=== PATIENT | female | born 1965 | race Caucasian/White ===

== ENCOUNTER 2019-12-22 12:44 | Emergency (ER) | payer OTHER ==
[2019-12-22 12:52] VITALS: TEMP 98
[2019-12-22] MEDS ORDERED: LIDOCAINE 1% INJ 10MG/ML (20 ML MDV) SQ ONE (13:02)
[2019-12-22] MEDS ORDERED: IBUPROFEN 600 MG TAB PO STA (13:02)
[2019-12-22] MEDS ORDERED: CEPHALEXIN 500MG STARTER PACK 4 CAP BTL PO STA (13:11)
--- NOTE | 2019-12-22 13:13 | ED ---
Upper Extremity HPI - General Chief Complaint: Extremity Injury, Upper Stated Complaint: Hand Lac Time Seen by Provider: 12/22/19 12:56 Source: patient Mode of arrival: wheelchair Limitations: physical limitation - History of Present Illness Initial Comments: 54-year-old female patient presents to the emergency department today for evaluation of laceration injury to the left hand. Patient states that she was in her back yard pulling weeds and debris when she cut her hand on a wire fence. Patient believes that a piece of the fence punctured her hand as well. States that she is having difficulty with movement due to pain. Denies any numbness or tingling to the hand. She was having some bleeding but denies take any blood thinning medications. States that she did rinse with water but did not do any other cleaning. States her last tetanus vaccine was one year ago. She did not take anything for pain. Denies any other injuries. Patient denies any headache, neck pain, back pain, chest pain, shortness of breath, dizziness, weakness, abdominal pain, nausea, vomiting, or difficulties with bowel movements or urination. - Related Data Previous Rx's Medication Instructions Recorded Cephalexin [Keflex] 500 mg PO Q6H #28 cap 12/22/19 Allergies Allergy/AdvReac Type Severity Reaction Status Date / Time Penicillins Allergy Rash/Hives Verified 12/22/19 12:52 Review of Systems ROS Statement: Those systems with pertinent positive or pertinent negative responses have been documented in the HPI. ROS Other: All systems not noted in ROS Statement are negative. Past Medical History Past Medical History: Fibromyalgia, Rheumatoid Arthritis (RA) Additional Past Medical History / Comment(s): lupus, restless legs History of Any Multi-Drug Resistant Organisms: None Reported Additional Past Surgical History / Comment(s): achilles tendon, lt knee Past Psychological History: No Psychological Hx Reported Smoking Status: Never smoker Past Alcohol Use History: Occasional Past Drug Use History: None Reported General Exam Limitations: physical limitation General appearance: alert, in no apparent distress, other (This is a well- developed, well-nourished adult female patient in no acute distress. Vital signs upon presentation are temperature 98.0F, pulse 83, respirations 18, blood pressure 156/81, pulse ox 98% on room air.) Respiratory exam: Present: normal lung sounds bilaterally. Absent: respiratory distress, wheezes, rales, rhonchi, stridor Cardiovascular Exam: Present: regular rate, normal rhythm, normal heart sounds. Absent: systolic murmur, diastolic murmur, rubs, gallop, clicks Extremities exam: Present: full ROM, normal capillary refill, other (There is puncture and laceration noted to the dorsal aspect of the hand near the left MCP joint of the ring finger, there is soft tissue swelling and ecchymosis. Skin is otherwise pink, warm, and dry. Cap refill less than 3 seconds. radial pulses 2+ and equal bilaterally. ). Absent: normal inspection, tenderness, pedal edema, joint swelling, calf tenderness Neurological exam: Present: alert, oriented X3, CN II-XII intact Psychiatric exam: Present: normal affect, normal mood Skin exam: Present: warm, dry, intact, normal color. Absent: rash Course Vital Signs 12/22/19 12/22/19 12:48 14:53 Temperature 98.0 F 98.0 F Pulse Rate 83 81 Respiratory 18 16 Rate Blood Pressure 156/81 148/87 O2 Sat by Pulse 98 98 Oximetry Procedures - Laceration Laceration #1 Consent Obtained: verbal consent Indication: laceration Site: upper extremity (Hand) Size (cm): 3 Description: linear Depth: simple, single layer Anesthetic Used: lidocaine 1% Anesthesia Technique: local infiltration Amount (mls): 5 Pre-repair: irrigated extensively Type of Sutures: nylon Size of Sutures: 5-0 Number of Sutures: 4 Technique: simple, interrupted Patient Tolerated Procedure: well, no complications Medical Decision Making - Medical Decision Making 54-year-old female patient presents to the emergency department today for evaluation of laceration puncture wound to the left dorsal hand. Physical examination revealed a 3 cm laceration adjacent to the fourth MCP joint. There is a puncture wound noted to the dorsal aspect of the hand. X-ray was obtained and showed no evidence for foreign body. Wound was irrigated using sterile water. Sutures were applied to the laceration puncture was left open. Patient was started on Keflex. She'll be discharged with prescription for antibiotics and wound care. She is instructed to follow-up with her primary care physician for recheck in 1-2 days. She is instructed to return in 7 days to have the stitches removed. Return parameters were discussed in detail. She verbalizes understanding and agrees with this plan. - Radiology Data Radiology results: report reviewed, image reviewed 3 views of the left hand are obtained. Report was reviewed in its entirety. Impression by Dr. Miller shows no acute osseous lesion radiopaque foreign body. Disposition Clinical Impression: Hand laceration, Puncture wound of left hand Disposition: HOME SELF-CARE Condition: Good Instructions (If sedation given, give patient instructions): Care For Your Stitches (ED), Laceration (ED), Puncture Wound (ED) Additional Instructions: Keep wound clean and dry. Cleanse twice daily with warm water and antibacterial soap. Follow-up with your primary care physician or hand specialist as needed. Return to the emergency department in 7 days to have your stitches removed. Return for any other new, worsening, or concerning symptoms. Prescriptions: Cephalexin [Keflex] 500 mg PO Q6H #28 cap Is patient prescribed a controlled substance at d/c from ED?: No Referrals: Dilip Allen MD [Primary Care Provider] - 1-2 days Yevgeniy Kendrick DO [Medical Doctor] - 1-2 days Time of Disposition: 14:18
--- NOTE | 2019-12-22 13:27 | XR ---
EXAMINATION TYPE: XR hand complete LT , 3 VIEWS DATE OF EXAM ORDERED: 12/22/2019 HISTORY: Laceration/puncture. COMPARISON: None. FINDINGS: No fracture, dislocation or radiopaque foreign body is seen. IMPRESSION: NO ACUTE OSSEOUS LESION OR RADIOPAQUE FOREIGN BODY.
[2019-12-22 14:54] VITALS: BP 148/87; PULSE 81; RESP 16
== END 2019-12-22 14:53 | disposition home or self-care (01) ==
LOC: EC 12:44
DX: S61.412A Laceration without foreign body of left hand, initial encounter (principal); S61.432A Puncture wound without foreign body of left hand, initial encounter; Z88.0 Allergy status to penicillin; W26.8XXA Contact with other sharp object(s), not elsewhere classified, initial encounter; Y92.096 Garden or yard of other non-institutional residence as the place of occurrence of the external cause
CPT/HCPCS: 73130; 99283; 12002; J2001

== ENCOUNTER 2020-11-09 16:34 | Emergency (ER) | payer BC, OTHER ==
--- NOTE | 2020-11-09 19:00 | ED ---
Neuro HPI - General Chief Complaint: Neuro Symptoms/Deficit Stated Complaint: SOB, DIZZY, NUMB Time Seen by Provider: 11/09/20 18:05 Source: patient Mode of arrival: wheelchair Limitations: no limitations - History of Present Illness Is the patient presenting with stroke symptoms?: Yes Initial Comments: 55-year-old female past medical history of fibromyalgia, rheumatoid arthritis, lupus who presents to the emergency department with numbness and weakness in her right hand. Patient states that she had a headache which developed this morning which was graded it as an 8/10 located in the frontal region. Shortly after breakfast she noted that she had some weakness in her right hand and numbness to her fingertips. Olar as if the whole right side of her body was heavy. Olar as if she couldn't make a fist or clinical trial specialist anything. Denies previous history of stroke. She did take an aspirin today. Denies any visual changes. No neck pain or stiffness. No weakness in her right lower extremity. No other alleviating, precipitating or modifying factors - Related Data Home Medications: Previous Rx's Medication Instructions Recorded Cephalexin [Keflex] 500 mg PO Q6H #28 cap 12/22/19 Atorvastatin [Lipitor] 20 mg PO DAILY #30 tablet 11/09/20 Allergies/Adverse Reactions: Allergies Allergy/AdvReac Type Severity Reaction Status Date / Time Penicillins Allergy Rash/Hives Verified 12/22/19 12:52 Review of Systems ROS Statement: Those systems with pertinent positive or pertinent negative responses have been documented in the HPI. ROS Other: All systems not noted in ROS Statement are negative. General Exam Limitations: no limitations General appearance: alert, in no apparent distress Head exam: Present: atraumatic, normocephalic, normal inspection Eye exam: Present: normal appearance, PERRL, EOMI. Absent: scleral icterus, conjunctival injection, periorbital swelling ENT exam: Present: normal exam, mucous membranes moist Neck exam: Present: normal inspection. Absent: tenderness, meningismus, lymp hadenopathy Respiratory exam: Present: normal lung sounds bilaterally. Absent: respiratory distress, wheezes, rales, rhonchi, stridor Cardiovascular Exam: Present: regular rate, normal rhythm, normal heart sounds. Absent: systolic murmur, diastolic murmur, rubs, gallop, clicks GI/Abdominal exam: Present: soft, normal bowel sounds. Absent: distended, tenderness, guarding, rebound, rigid Extremities exam: Present: normal inspection, full ROM, normal capillary refill, other (equal clinical trial specialist strength. Sensation intact in median, radial and ulnar nerve distribution). Absent: tenderness, pedal edema, joint swelling, calf tenderness Back exam: Present: normal inspection Neurological exam: Present: alert, oriented X3, CN II-XII intact Psychiatric exam: Present: normal affect, normal mood Skin exam: Present: warm, dry, intact, normal color. Absent: rash Stroke MDM - Lab Data Result diagrams: 11/09/20 18:54 11/09/20 18:54 Lab Results 11/09/20 11/09/20 11/09/20 Range/Units 18:54 18:54 18:54 WBC 6.2 (3.8-10.6) k/uL RBC 4.71 (3.80-5.40) m/uL Hgb 15.2 (11.4-16.0) gm/dL Hct 44.3 (34.0-46.0) % MCV 93.9 (80.0-100.0) fL MCH 32.2 (25.0-35.0) pg MCHC 34.3 (31.0-37.0) g/dL RDW 12.1 (11.5-15.5) % Plt Count 154 (150-450) k/uL MPV 7.7 Neutrophils % 55 % Lymphocytes % 30 % Monocytes % 5 % Eosinophils % 7 % Basophils % 1 % Neutrophils # 3.4 (1.3-7.7) k/uL Lymphocytes # 1.9 (1.0-4.8) k/uL Monocytes # 0.3 (0-1.0) k/uL Eosinophils # 0.4 (0-0.7) k/uL Basophils # 0.1 (0-0.2) k/uL PT 9.7 (9.0-12.0) sec INR 0.9 (<1.2) APTT 22.0 (22.0-30.0) sec Sodium 140 (137-145) mmol/L Potassium 3.9 (3.5-5.1) mmol/L Chloride 106 (98-107) mmol/L Carbon Dioxide 27 (22-30) mmol/L Anion Gap 7 mmol/L BUN 19 H (7-17) mg/dL Creatinine 0.92 (0.52-1.04) mg/dL Est GFR (CKD-EPI)AfAm 82 (>60 ml/min/1.73 sqM) Est GFR (CKD-EPI)NonAf 71 (>60 ml/min/1.73 sqM) Glucose 91 (74-99) mg/dL Plasma Lactic Acid Júnior (0.7-2.0) mmol/L Calcium 9.4 (8.4-10.2) mg/dL Total Bilirubin 0.4 (0.2-1.3) mg/dL AST 30 (14-36) U/L ALT 21 (4-34) U/L Alkaline Phosphatase 119 (38-126) U/L Troponin I (0.000-0.034) ng/mL Total Protein 6.9 (6.3-8.2) g/dL Albumin 3.8 (3.5-5.0) g/dL Urine Color Urine Appearance (Clear) Urine pH (5.0-8.0) Ur Specific [place] (1.001-1.035) Urine Protein (Negative) Urine Glucose (UA) (Negative) Urine Ketones (Negative) Urine Blood (Negative) Urine Nitrite (Negative) Urine Bilirubin (Negative) Urine Urobilinogen (<2.0) mg/dL Ur Leukocyte Esterase (Negative) Urine RBC (0-5) /hpf Urine WBC (0-5) /hpf Ur Squamous Epith Cells (0-4) /hpf Hyaline Casts (0-2) /lpf Urine Mucus (None) /hpf 11/09/20 11/09/20 11/09/20 Range/Units 18:54 18:54 20:07 WBC (3.8-10.6) k/uL RBC (3.80-5.40) m/uL Hgb (11.4-16.0) gm/dL Hct (34.0-46.0) % MCV (80.0-100.0) fL MCH (25.0-35.0) pg MCHC (31.0-37.0) g/dL RDW (11.5-15.5) % Plt Count (150-450) k/uL MPV Neutrophils % % Lymphocytes % % Monocytes % % Eosinophils % % Basophils % % Neutrophils # (1.3-7.7) k/uL Lymphocytes # (1.0-4.8) k/uL Monocytes # (0-1.0) k/uL Eosinophils # (0-0.7) k/uL Basophils # (0-0.2) k/uL PT (9.0-12.0) sec INR (<1.2) APTT (22.0-30.0) sec Sodium (137-145) mmol/L Potassium (3.5-5.1) mmol/L Chloride (98-107) mmol/L Carbon Dioxide (22-30) mmol/L Anion Gap mmol/L BUN (7-17) mg/dL Creatinine (0.52-1.04) mg/dL Est GFR (CKD-EPI)AfAm (>60 ml/min/1.73 sqM) Est GFR (CKD-EPI)NonAf (>60 ml/min/1.73 sqM) Glucose (74-99) mg/dL Plasma Lactic Acid Júnior 0.9 (0.7-2.0) mmol/L Calcium (8.4-10.2) mg/dL Total Bilirubin (0.2-1.3) mg/dL AST (14-36) U/L ALT (4-34) U/L Alkaline Phosphatase (38-126) U/L Troponin I <0.012 (0.000-0.034) ng/mL Total Protein (6.3-8.2) g/dL Albumin (3.5-5.0) g/dL Urine Color Yellow Urine Appearance Clear (Clear) Urine pH 5.5 (5.0-8.0) Ur Specific [place]well 1.040 H (1.001-1.035) Urine Protein Negative (Negative) Urine Glucose (UA) Negative (Negative) Urine Ketones Negative (Negative) Urine Blood Negative (Negative) Urine Nitrite Negative (Negative) Urine Bilirubin Negative (Negative) Urine Urobilinogen <2.0 (<2.0) mg/dL Ur Leukocyte Esterase Small H (Negative) Urine RBC 2 (0-5) /hpf Urine WBC 2 (0-5) /hpf Ur Squamous Epith Cells 3 (0-4) /hpf Hyaline Casts 1 (0-2) /lpf Urine Mucus Rare H (None) /hpf - Medical Decision Making Upon arrival patient was placed into room 19. Thorough history and physical exam is performed. Patient does have full range of motion except for a weak abduction in the fingers. Sensation is intact. IV is established. Labs were conducted. Patient sent for a CT of her brain as well as CT angiography. Laboratory studies are reviewed and discussed the patient's. CT of the brain and CT angiography are negative. Results are discussed the patient. She has artery taken a full dose aspirin today. I did recommend admission for neurology consultation and echo. Patient reports that she would like to follow up outpatient due to the covid pandemic and the risk of catching covid while hospitalized. I did recommend that the patient take it and aspirin daily. Reports to a previous history of low platelets and therefore I do recommend a baby aspirin. Patient will be also placed on atorvastatin. Recommended that she follow up with her primary care doctor in 2-4 days. I would like her to see a neurologist and have an echo performed. Return to the emergency room for any new or worsening symptoms. Strict return parameters given and the patient understood. Patient was discharged home without any new neurologic findings. 11/09/20 1651 EKG demonstrates sinus rhythm with ventricular rate of 69. ID interval 244. QRS 92. QTC 420. Q wave in lead 3. J-point elevation in aVF. 11/09/20 18:43 EKG demonstrates sinus rhythm with first-degree AV block. Rate of 70. ID interval to 42. QS 92. QTC 414. Q wave in lead 3. Minimal ST elevation in aVF. No reciprocal changes Past Medical History Past Medical History: Fibromyalgia, Rheumatoid Arthritis (RA) Additional Past Medical History / Comment(s): lupus, restless legs History of Any Multi-Drug Resistant Organisms: None Reported Additional Past Surgical History / Comment(s): achilles tendon, lt knee Past Psychological History: No Psychological Hx Reported Past Alcohol Use History: Occasional Past Drug Use History: None Reported Course Vital Signs 11/09/20 11/09/20 11/09/20 16:43 18:58 20:00 Temperature 97.7 F Pulse Rate 58 L 67 75 Respiratory 18 18 20 Rate Blood Pressure 108/77 115/68 121/71 O2 Sat by Pulse 95 100 100 Oximetry 11/09/20 21:12 Temperature 97.6 F Pulse Rate 85 Respiratory 86 H Rate Blood Pressure 126/85 O2 Sat by Pulse 100 Oximetry Disposition Clinical Impression: Numbness of right hand, Cephalgia Disposition: HOME SELF-CARE Condition: Stable Instructions (If sedation given, give patient instructions): Paresthesia (ED) Additional Instructions: Take an 81 mg Aspirin daily. You have been started on a new cholesterol medication. I recommend you see a neurologist and have an Echo performed. Return to the ED for any new or worsening symptoms. Prescriptions: Atorvastatin [Lipitor] 20 mg PO DAILY #30 tablet Is patient prescribed a controlled substance at d/c from ED?: No Referrals: Dilip Allen MD [Primary Care Provider] - 1-2 days Time of Disposition: 20:31
[2020-11-09 19:05] LABS: Basophils # (A) 0.1 k/uL (0-0.2); Basophils % (A) 1 %; Eosinophils # (A) 0.4 k/uL (0-0.7); Eosinophils % (A) 7 %; HCT 44.3 % (34.0-46.0); HGB 15.2 gm/dL (11.4-16.0); Lymphocytes # (A) 1.9 k/uL (1.0-4.8); Lymphocytes % (A) 30 %; MCH 32.2 pg (25.0-35.0); MCHC 34.3 g/dL (31.0-37.0); MCV 93.9 fL (80.0-100.0); Mean Platelet Volume 7.7; Monocytes # (A) 0.3 k/uL (0-1.0); Monocytes % (A) 5 %; Neutrophils # (A) 3.4 k/uL (1.3-7.7); Neutrophils % (A) 55 %; Platelet Count 154 k/uL (150-450); RBC 4.71 m/uL (3.80-5.40); RDW 12.1 % (11.5-15.5); WBC 6.2 k/uL (3.8-10.6)
[2020-11-09 19:15] LABS: Albumin 3.8 g/dL (3.5-5.0); Calcium 9.4 mg/dL (8.4-10.2); Potassium 3.9 mmol/L (3.5-5.1); Total Bilirubin 0.4 mg/dL (0.2-1.3); Total Protein 6.9 g/dL (6.3-8.2)
[2020-11-09 19:19] LABS: INR 0.9 (<1.2); Prothrombin Time 9.7 sec (9.0-12.0)
--- NOTE | 2020-11-09 19:35 | CT ---
EXAM: CT brain wo con CLINICAL HISTORY: Right-sided weakness and dizziness. COMPARISON: None TECHNIQUE: Contiguous axial noncontrast images of the brain were obtained. Coronal and sagittal refor mats were generated and reviewed. Automated dose control was used for this exam. FINDINGS: There is no evidence for intracranial hemorrhage, mass effect or midline shift. The white matter is g rossly preserved. Ventricular size and configuration is within normal limits for degree of parenchymal volume. The paranasal sinuses are clear. The mastoid air cells are clear. No evidence for calvarial fracture. IMPRESSION: No acute intracranial abnormality.
--- NOTE | 2020-11-09 19:45 | CT ---
EXAM: CTA HEAD AND NECK INDICATION: Follow-up stroke with right-sided weakness. COMPARISON: None. TECHNIQUE: CTA of the head and neck were performed with multiplanar and MIP reformats generated and r eviewed. Stenosis evaluation is based on [place] Symptomatic Carotid Endarterectomy Trial (HERMINIO CET). Intravenous contrast was administered. FINDINGS: There is normal three-vessel branching of the aorta. There is no evidence of high-grade stenosis, dis section or aneurysm seen in the bilateral common carotid, cervical internal carotid and vertebral art eries. There is no evidence of high-grade stenosis, dissection or aneurysm in the intracranial internal lal tid arteries, anterior, middle and posterior cerebral arteries as well as in the imaged vertebral and basilar arteries. The communicating arteries are unremarkable. Limited evaluation of the brain parenchyma and osseous structures demonstrate no acute abnormality. IMPRESSION: No significant abnormality of the CTA head/neck.
[2020-11-09 20:17] LABS: Appearance,Urine Clear (Clear); Bilirubin,Urine Negative (Negative); Blood,Urine Negative (Negative); Color,Urine Yellow; Glucose,Urine (UA) Negative (Negative); Hyaline Casts,Urine 1 /lpf (0-2); Ketones,Urine Negative (Negative); Leukocyte Esterase,Urine Small (Negative); Mucus,Urine Rare /hpf; Nitrite,Urine Negative (Negative); PH, Urine 5.5 (5.0-8.0); Protein,Urine Negative (Negative); RBC,Urine 2 /hpf (0-5); Squamous Epithelial Cell,Urine 3 /hpf (0-4); Urobilinogen,Urine <2.0 mg/dL (<2.0); WBC,Urine 2 /hpf (0-5)
[2020-11-09] MEDS ORDERED: diphenhydrAMINE 50 MG/ML 1 ML VIAL IVP STA (20:28)
[2020-11-09] MEDS ORDERED: KETOROLAC 15 MG/ML 1 ML VIAL IVP STA (20:28)
[2020-11-09] MEDS ORDERED: METOCLOPRAMIDE 5 MG/ML 2 ML VIAL IVP STA (20:28)
[2020-11-09 21:13] VITALS: BP 126/85; PULSE 85; RESP 86; TEMP 97.6
== END 2020-11-09 21:17 | disposition home or self-care (01) ==
LOC: EC 16:34
DX: R20.0 Anesthesia of skin (principal); R51.9 Headache, unspecified; M79.7 Fibromyalgia; M06.9 Rheumatoid arthritis, unspecified; Z88.0 Allergy status to penicillin
CPT/HCPCS: 99285; 96374; 96375 ×2; 36415; 93005; 80053; 83605; 84484; 85025; 85610; 85730; 81001; 70496; 70450; 70498; J1200; J2765; J1885; Q9967

== ENCOUNTER 2021-01-09 11:54 | Emergency (ER) | payer BC ==
--- NOTE | 2021-01-09 12:27 | ED ---
General Adult HPI - General Chief complaint: Extremity Injury, Lower Stated complaint: Fall, R Knee Injury Time Seen by Provider: 01/09/21 12:12 Source: patient, RN notes reviewed Mode of arrival: ambulatory Limitations: no limitations - History of Present Illness Initial comments: Patient is a pleasant 55-year-old female presenting to the emergency Department with complaints of right knee discomfort. Patient had a fall down a couple of steps yesterday and twisted her right knee. Patient has discomfort fairly severe with movement. Discomfort mild at rest. No head injury or loss of consciousness. No chest pain or dyspnea. No abdominal or back pain. No history of chronic knee problems. Patient states the injury was a twisting injury rather than a direct trauma. - Related Data Previous Rx's Medication Instructions Recorded Cephalexin [Keflex] 500 mg PO Q6H #28 cap 12/22/19 Atorvastatin [Lipitor] 20 mg PO DAILY #30 tablet 11/09/20 Allergies Allergy/AdvReac Type Severity Reaction Status Date / Time Penicillins Allergy Rash/Hives Verified 01/09/21 12:01 Review of Systems ROS Statement: Those systems with pertinent positive or pertinent negative responses have been documented in the HPI. ROS Other: All systems not noted in ROS Statement are negative. Constitutional: Denies: fever Eyes: Denies: eye pain ENT: Denies: ear pain Respiratory: Denies: cough Cardiovascular: Denies: chest pain Endocrine: Denies: fatigue Gastrointestinal: Denies: abdominal pain Genitourinary: Denies: dysuria Musculoskeletal: Reports: as per HPI. Denies: back pain Skin: Denies: rash Neurological: Denies: headache, weakness Past Medical History Past Medical History: Fibromyalgia, Rheumatoid Arthritis (RA) Additional Past Medical History / Comment(s): lupus, restless legs History of Any Multi-Drug Resistant Organisms: None Reported Additional Past Surgical History / Comment(s): achilles tendon, lt knee Past Psychological History: No Psychological Hx Reported Smoking Status: Never smoker Past Alcohol Use History: Occasional Past Drug Use History: None Reported General Exam Limitations: no limitations General appearance: alert, in no apparent distress Head exam: Present: atraumatic Eye exam: Present: normal appearance Neck exam: Present: normal inspection. Absent: tenderness Respiratory exam: Present: normal lung sounds bilaterally Cardiovascular Exam: Present: regular rate, normal rhythm Expanded Peripheral pulses: 2+: Posterior Tibialis (R), Dorsalis Pedis (R) GI/Abdominal exam: Present: soft. Absent: tenderness Extremities exam: Present: tenderness (Mild tenderness right anterior knee. Moderate tenderness and meniscal region.), other (Distal extremity is neurovascularly intact. Sensation intact. Pulses intact. Good strength of foot and toes.). Absent: full ROM (Right knee exam Limited by pain) Neurological exam: Present: alert. Absent: motor sensory deficit Psychiatric exam: Present: normal affect, normal mood Skin exam: Present: normal color Course Vital Signs 01/09/21 11:58 Temperature 98.1 F Pulse Rate 84 Respiratory 18 Rate Blood Pressure 119/85 O2 Sat by Pulse 97 Oximetry Medical Decision Making - Medical Decision Making Patient reevaluated and updated on results and need for follow-up as well as con cerns for possible meniscal or ligament injury. - Radiology Data Radiology results: image reviewed (Right knee x-ray reveals no acute process) Disposition Clinical Impression: Right knee injury Disposition: HOME SELF-CARE Condition: Stable Instructions (If sedation given, give patient instructions): Knee Pain (ED) Additional Instructions: Please do follow-up with orthopedics in the next few days for recheck. There is concern for possible meniscal or ligamentous injury. Ice to affected area. [id number] Motrin as needed. Return for increased pain, swelling, redness or fever, worsening symptoms or any other concerns. Use crutches, prescribed and provided. Is patient prescribed a controlled substance at d/c from ED?: No Referrals: Dilip Allen MD [Primary Care Provider] - 1-2 days Dileep Valverde MD [STAFF PHYSICIAN] - 1-2 days Time of Disposition: 12:50
--- NOTE | 2021-01-09 12:37 | XR ---
EXAMINATION TYPE: XR knee complete RT DATE OF EXAM: 01/09/2021 CLINICAL HISTORY: pain TECHNIQUE: Three views of the right knee are obtained. COMPARISON: None. FINDINGS: There is no acute fracture/dislocation. The tri-compartment joint spaces appear within no rmal limits. The overlying soft tissue appears unremarkable. IMPRESSION: There is no acute fracture or dislocation.ICD 10 NO FRACTURE, INITIAL EVALUATION
[2021-01-09] MEDS ORDERED: KETOROLAC 15 MG/ML 1 ML VIAL IM STA (12:44)
[2021-01-09] MEDS ORDERED: ACET/COD 300 MG/30 MG STARTER PACK 6 TAB BTL PO STA (12:50)
[2021-01-09 13:13] VITALS: BP 137/75; PULSE 78; RESP 16; TEMP 98
== END 2021-01-09 13:11 | disposition home or self-care (01) ==
LOC: EC 11:54
DX: S89.91XA Unspecified injury of right lower leg, initial encounter (principal); W10.9XXA Fall (on) (from) unspecified stairs and steps, initial encounter; M06.9 Rheumatoid arthritis, unspecified; M79.7 Fibromyalgia
CPT/HCPCS: 73562; 99283; 96372; L1830; J1885

== ENCOUNTER 2022-04-26 06:44 | Emergency (ER) | payer BC ==
[2022-04-26 06:48] VITALS: TEMP 98.2
[2022-04-26] MEDS ORDERED: HYDROmorphone 1 MG/ML 1 ML SYRINGE IVP STA (07:10)
[2022-04-26] MEDS ORDERED: ONDANSETRON 4 MG/2 ML VIAL IVP STA (07:10)
--- NOTE | 2022-04-26 07:35 | ED ---
Back Pain HPI - General Chief Complaint: Back Pain/Injury Stated Complaint: Fall, back injury Time Seen by Provider: 04/26/22 06:49 Source: patient, RN notes reviewed Limitations: no limitations - History of Present Illness Initial Comments: This a 56-year-old female presents emergency Department with chief complaint of back pain. Patient states she fell just prior arrival. Patient states she also balance falling backwards onto her low back, buttocks region. Patient states that she has fibromyalgia, lupus and chronic back issues. She denies any prior surgeries. She denies any bowel, bladder incontinence or retention. Patient states the pain is located in her lumbar spine, radiates mild into the left hip, left leg. Denies any paresthesias denies any saddle last seizures. Patient denies any abdominal pain. Patient denies any head injury no loss conscious. - Related Data Previous Rx's Medication Instructions Recorded Cephalexin [Keflex] 500 mg PO Q6H #28 cap 12/22/19 Atorvastatin [Lipitor] 20 mg PO DAILY #30 tablet 11/09/20 Cyclobenzaprine [Flexeril] 10 mg PO TID PRN #15 tab 04/26/22 Ibuprofen [Motrin] 600 mg PO Q8HR PRN #20 tab 04/26/22 Allergies Allergy/AdvReac Type Severity Reaction Status Date / Time Penicillins Allergy Rash/Hives Verified 04/26/22 06:48 Review of Systems ROS Statement: Those systems with pertinent positive or pertinent negative responses have been documented in the HPI. ROS Other: All systems not noted in ROS Statement are negative. Past Medical History Past Medical History: Fibromyalgia, Rheumatoid Arthritis (RA) Additional Past Medical History / Comment(s): lupus, restless legs History of Any Multi-Drug Resistant Organisms: None Reported Additional Past Surgical History / Comment(s): achilles tendon, lt knee Past Psychological History: No Psychological Hx Reported Smoking Status: Never smoker Past Alcohol Use History: Occasional Past Drug Use History: None Reported General Exam Limitations: no limitations General appearance: alert, in no apparent distress Head exam: Present: atraumatic, normocephalic, normal inspection Eye exam: Present: normal appearance, PERRL, EOMI. Absent: scleral icterus, conjunctival injection, periorbital swelling Neck exam: Present: normal inspection, full ROM. Absent: tenderness, meningismus, lymphadenopathy Respiratory exam: Present: normal lung sounds bilaterally. Absent: respiratory distress, wheezes, rales, rhonchi, stridor Cardiovascular Exam: Present: regular rate, normal rhythm, normal heart sounds. Absent: systolic murmur, diastolic murmur, rubs, gallop, clicks GI/Abdominal exam: Present: soft, normal bowel sounds. Absent: distended, tenderness, guarding, rebound, rigid Extremities exam: Present: normal inspection, full ROM, normal capillary refill. Absent: tenderness, pedal edema, joint swelling, calf tenderness Back exam: Present: tenderness, paraspinal tenderness, vertebral tenderness. Absent: full ROM, CVA tenderness (R), CVA tenderness (L), muscle spasm Neurological exam: Present: alert, oriented X3, CN II-XII intact, reflexes normal. Absent: motor sensory deficit Skin exam: Present: warm, dry, intact, normal color. Absent: rash Course Vital Signs 04/26/22 06:45 Temperature 98.2 F Pulse Rate 62 Respiratory 22 Rate Blood Pressure 122/75 O2 Sat by Pulse 96 Oximetry Medical Decision Making - Medical Decision Making 56-year-old presented for back pain for a fall x-rays shows degenerative changes no acute fracture she has no red flag symptoms chronically intact patient provided pain control patient we discharged in stable condition to parameters were discussed. Disposition Clinical Impression: Lumbar back pain Disposition: HOME SELF-CARE Condition: Stable Instructions (If sedation given, give patient instructions): Acute Low Back Pain (ED) Additional Instructions: Please return to the Emergency Department if symptoms worsen or any other concerns. Prescriptions: Cyclobenzaprine [Flexeril] 10 mg PO TID PRN #15 tab PRN Reason: Muscle Spasm Ibuprofen [Motrin] 600 mg PO Q8HR PRN #20 tab PRN Reason: Pain Is patient prescribed a controlled substance at d/c from ED?: No Referrals: Dilip Allen MD [Primary Care Provider] - 1-2 days Time of Disposition: 09:34
--- NOTE | 2022-04-26 09:31 | XR ---
EXAMINATION TYPE: XR lumbosacral spine min 4V DATE OF EXAM: 04/26/2022 8:04 AM INDICATION: Patient age:Female; 56 years old; Reason for study: fall, pain; PHH. COMPARISON: None TECHNIQUE: Frontal, lateral and coned in L5-S1 lateral views of the spine. FINDINGS: No evidence of any acute osseous pathology. No evidence of loss of vertebral body height i s seen. There is normal alignment of the lumbar vertebral bodies. No evidence of any acute osseous pa thology. Mild scattered disc space narrowing. Multilevel marginal osteophyte formation throughout the visualized spine. There is facet joint arthropathy throughout the spine. Scattered at least mild siddhartha ral foraminal stenosis. IMPRESSION: 1. No acute fracture. 2. Mild multilevel disc degeneration.
[2022-04-26] MEDS ORDERED: ACET/COD 300 MG/30 MG STARTER PACK 6 TAB BTL PO STA (09:34)
[2022-04-26] MEDS ORDERED: HYDROmorphone 0.5 MG/0.5 ML SYRINGE IVP STA (09:52)
[2022-04-26 10:10] VITALS: BP 128/78; PULSE 78; RESP 16
== END 2022-04-26 10:07 | disposition home or self-care (01) ==
LOC: EC 06:44
DX: M54.50 Low back pain, unspecified (principal); Z88.0 Allergy status to penicillin; W18.39XA Other fall on same level, initial encounter; Y92.009 Unspecified place in unspecified non-institutional (private) residence as the place of occurrence of the external cause
CPT/HCPCS: 99283 ×2; 96374 ×2; 96375 ×2; 96376 ×2; 72110; J2405; J1170 ×2